=== PATIENT | female | born 1985 | race Caucasian/White ===

== ENCOUNTER 2017-10-24 12:47 | Emergency (ER) | payer SELFPAY ==
[~2017-10-24] VITALS: Ht 167.6 cm; Wt 44.5 kg
[2017-10-24 12:54] VITALS: BP 113/87
== END 2017-10-24 14:31 | disposition home or self-care (01) ==
LOC: ER 12:48
DX: J06.9 Acute upper respiratory infection, unspecified (principal); J34.89 Other specified disorders of nose and nasal sinuses; J45.909 Unspecified asthma, uncomplicated; Z88.1 Allergy status to other antibiotic agents; Z88.8 Allergy status to other drugs, medicaments and biological substances; Z91.040 Latex allergy status; Z88.2 Allergy status to sulfonamides
CPT/HCPCS: A4606; Z7610